=== PATIENT | female | born 1980 | race Two or more races ===

== ENCOUNTER 2021-12-13 10:54 | Emergency (ER) | payer OTHER ==
[~2021-12-13] VITALS: Ht 157.5 cm; Wt 95.3 kg
[2021-12-13] MEDS ORDERED: ACETAMINOPHEN/CODEINE#3 (300/30mg) TAB PO ONE (12:00)
[2021-12-13] MEDS ORDERED: IBUP800T27 PO (14:27)
[2021-12-13] MEDS ORDERED: CYCL-837 PO (14:27)
[2021-12-13 14:45] VITALS: BP 116/72
== END 2021-12-13 14:50 | disposition home or self-care (01) ==
LOC: ER 10:54
DX: S16.1XXA Strain of muscle, fascia and tendon at neck level, initial encounter (principal); S39.012A Strain of muscle, fascia and tendon of lower back, initial encounter; S29.012A Strain of muscle and tendon of back wall of thorax, initial encounter; S70.02XA Contusion of left hip, initial encounter; Z90.89 Acquired absence of other organs; Z90.710 Acquired absence of both cervix and uterus; V43.62XA Car passenger injured in collision with other type car in traffic accident, initial encounter; Y93.89 Activity, other specified; Y92.410 Unspecified street and highway as the place of occurrence of the external cause; Y99.9 Unspecified external cause status
CPT/HCPCS: 72070; 72100; 72125; 73502